=== PATIENT | female | born 1975 | race Caucasian/White ===

== ENCOUNTER 2017-07-29 13:35 | Emergency (ER) | payer MEDICARE, OTHER ==
--- NOTE | 2017-07-29 13:48 | EDM.PDOC ---
ED HPI GENERAL MEDICAL PROBLEM - General Chief Complaint: General Stated Complaint: dehydration Time Seen by Provider: 07/29/17 13:35 Source of Information: Reports: Patient, Family (Mother), Old Records ([facility] EMR. No paper hospital chart available.) History Limitations: Reports: No Limitations - History of Present Illness INITIAL COMMENTS - FREE TEXT/NARRATIVE: The patient was brought to the emergency room via private automobile for evaluation of nonspecific abdominal discomfort associated with some progressive anorexia with symptoms starting about 5 weeks ago, however progressing during the last few days. She is having trouble drinking fluids and is afraid that she is once again dehydrated. No recent history of, heartburn, nausea, diarrhea, melena, gross hematochezia, or any food intolerance, including fatty foods, etc. somewhat loose stools yesterday and today but only 1 bowel movement per day.The patient denies any chest pain/pressure, heart flutter, dizziness, orthostasis, orthopnea, diaphoresis, paresthesias, recent decreased exercise tolerance, or any other anginal-type symptoms. The patient also denies any recent fever, cough, wheezing, dyspnea, etc.. No history of recent headaches, visual changes, diplopia, change in mental status, or other change in neurological status. Note that the patient has had an unintentional about 5 pounds weight gain during the last couple of weeks Onset: Gradual Duration: Week(s):, Getting Worse Location: Reports: Abdomen. Denies: Head, Face, Neck, Chest, Back, Pelvis, Radiates to Quality: Reports: Ache, Same as Previous Episode Severity: Mild Improves with: Reports: None Worsens with: Reports: None Context: Reports: Other (As above) Associated Symptoms: Reports: Fever/Chills, Loss of Appetite. 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) (None) - Related Data Allergies Allergy/AdvReac Type Severity Reaction Status Date / Time meperidine [From Demerol] Allergy Cannot Verified 07/29/17 13:51 Remember Home Meds: Home Meds Aspirin 81 mg PO BRK 07/29/17 [History] Calcium Carbonate/Vitamin D3 [Calcium 500 + Vit D Caplet] 1 each PO BID [History] ClonazePAM [KlonoPIN] 1 mg PO TID 07/29/17 [History] Darbepoetin Drew [Aranesp] 60 mcg SUBCUT Q14D 07/29/17 [History] FLUoxetine HCl [Fluoxetine HCl] 80 mg PO 199907/29/17 [History] Ferrous Sulfate 325 mg PO TID 07/29/17 [History] Gabapentin [Neurontin] 300 mg PO BID 07/29/17 [History] Levalbuterol Tartrate [Xopenex Hfa] 15 gm IH ASDIRECTED PRN 07/29/17 [History] Magnesium 250 mg PO BID 07/29/17 [History] Mycophenolate Mofetil [Cellcept] 500 mg PO BID 07/29/17 [History] Sodium Bicarbonate 1,300 mg PO BID 07/29/17 [History] Sulfamethoxazole/Trimethoprim [Sulfamethoxazole-Tmp Ss Tablet] 1 tab PO DAILY [History] Tacrolimus [Prograf] 2 mg PO BID 07/29/17 [History] buPROPion [Wellbutrin XL] 300 mg PO 199907/29/17 [History] Past Medical History HEENT History: Reports: Cataract, Impaired Vision, Retinal Detachment, Other ( See Below). Denies: Allergic Rhinitis, Glaucoma, Hard of Hearing, Macular Degeneration Other HEENT History: bilateral cataracts and diabetic retinopathy Cardiovascular History: Denies: Afib, Aneurysm, Arrhythmia, Blood Clots/VTE/DVT , CAD, Heart Failure, Heart Murmur, High Cholesterol, Hypertension, UT, PVD, Syncope Respiratory History: Reports: Asthma, Intubation, Previous. Denies: Bronchitis , Recurrent, COPD, PE, Pneumonia, Recurrent, Pneumothorax, Sleep Apnea Gastrointestinal History: Reports: Gastritis, GERD. Denies: Celiac Disease, Cholelithiasis, Chronic Constipation, Chronic Diarrhea, Colon Polyp, Fecal Incontinence, GI Bleed, Hepatitis, Hiatal Hernia, Inflammatory Bowel Disease, Irritable Bowel Syndrome, Jaundice, Pancreatitis, PUD Genitourinary History: Reports: Acute Renal Failure, Chronic Renal Insuffiency, Diabetic Nephropathy, UTI, Recurrent, Other (See Below). 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 Denies: Dysfunctional Uterine Bleeding, Endometriosis, Fibroids : 3 (SAB during first trimester) Para: 2 (Problems with preeclampsia and gestational diabetes during both pregnancies with full-term initial delivery by with last delivered by at 24 weeks gestation) LMP (Approximate): 1 Week (Normal by history) Musculoskeletal History: Reports: Arthritis, Back Pain, Chronic, Neck Pain, Chronic, Osteoarthritis. Denies: Amputation, Fracture, Fibromyalgia, Gout, Osteoporosis, RA, SLE Neurological History: Reports: None, Neuropathy, Diabetic, Neuropathy, Peripheral. Denies: Cerebral Aneurysms, Concussion, CVA, Headaches, Chronic, Head Trauma, Migraines, MS, Parkinson's, Seizure, TIA Psychiatric History: Reports: Anxiety, Depression. Denies: Abuse, Victim of, ADD, ADHD, Addiction, Psych Hospitalization(s), PTSD, Suicide Attempt, Suicidal Ideation Endocrine/Metabolic History: Reports: Diabetes, Type I (Since age 10), IDDM, Other (See Below). Denies: Hypothyroidism Other Endocrine/Metabolic History: Hypomagnesemia Hematologic History: Reports: Anemia, Iron Deficiency. Denies: B12 Deficiency, Blood Transfusion(s) Immunologic History: Reports: Immunosuppression, Other (See Below). Denies: AIDS, HIV, SLE Other Immunologic History: Immunosuppression secondary to IDDM and previous pancreas and kidney transplant as below Oncologic (Cancer) History: Reports: None. Denies: Basal Cell Carcinoma, Cervix , Hodgkin's Lymphoma, Lymphoma, Malignant Melanoma, Non-Hodgkin's Lymphoma, Pancreatic, Squamous Cell Carcinoma Dermatologic History: Reports: None. Denies: Eczema, Psoriasis - Infectious Disease History Infectious Disease History: Reports: Chicken Pox, Scarlet Fever. Denies: C- Difficile, Measles, Meningitis, Mononucleosis, MRSA, Mumps, Pertussis (Whooping Cough), Rheumatic Fever, Rubella, Shingles, VRE - Past Surgical History Head Surgeries/Procedures: Reports: None HEENT Surgical History: Reports: Laser Surgery, Oral Surgery, Other (See Below) . Denies: Adenoidectomy, Cataract Surgery, Detached Retina, Eye Surgery, LASIK , Myringotomy w Tube(s), Naso-Sinus Surgery, Tonsillectomy Other HEENT Surgeries/Procedures: [place] teeth extraction 4 at age 12, laser treatments for diabetic retinopathy with last treatment at about age 30 Cardiovascular Surgical History: Reports: None. Denies: Varicose Respiratory Surgical History: Reports: None. Denies: Lung Biopsies, Thoracentesis GI Surgical History: Reports: Colonoscopy, EGD, Other (See Below). Denies: Appendectomy, Cholecystectomy, Hernia, Abdominal, Hernia, Inguinal, Hernia Repair/Other Other GI Surgeries/Procedures: EGD and colonoscopy in about 2011 concomitant pancreatic and renal transplant at the [facility] on 09/15/08 with her mother as donor for her kidney Female Surgical History: Reports: Breast Biopsy, Section, Tubal Ligation, Other (See Below). Denies: D&C, Dilitation & Evacuation, Oophorectomy , Salpingo-Oophorectomy Other Female Surgeries/Procedures: bilateral tubal ligation at age 29, C- sections 2 this above, renal transplant as above Endocrine Surgical History: Denies: Thyroid Biopsy Neurological Surgical History: Denies: C-Spine, Discectomy, Laminectomy, Lumbar Spine, Spinal Fusion, Vertebroplasty Musculoskeletal Surgical History: Reports: Arthroscopic Procedure, Other (See Below). Denies: Carpal Tunnel, Ganglion Cyst, Joint Replacement, ORIF, Shoulder Surgery Other Musculoskeletal Surgeries/Procedures:: Bilateral arthroscopic knee surgeries age 16 Oncologic Surgical History: Reports: None. Denies: Biopsy of Breast Dermatological Surgical History: Reports: None - Past Imaging History Past Imaging History: Reports: Carotid US (12/15/14), CAT Scan (CT of the abdomen and pelvis on 02/15/15, CT of the sinuses on 04/03/11), Mammogram (Last on 05/26/17), MRI (MRI of the pelvis on 01/29/10), Stress Testing (Negative Dobutamine Cardiolite stress test on 04/08/08 with ejection fraction of 50 percent), Ultrasound (Renal ultrasound on 12/22/14, last bladder ultrasound on 12/11 with previous evaluation on 04/24/11, ultrasound of the legs bilaterally for varicose veins on 09/15/10 and 03/30/10), Venous Doppler (Venous Doppler studies of the lower extremities on 05/16/10) Social & Family History - Tobacco Use Smoking Status *Q: Never Smoker Tobacco Use Within Last Twelve Months: No Used Tobacco, but Quit: No Smoking Cessation Information Provided To Patient: No Second Hand Smoke Exposure: Yes Source of Second Hand Smoke Exposure: smokes Second Hand Smoke Education Provided: Yes - Caffeine Use Caffeine Use: Reports: Coffee (One cup every few days), Soda (1 soda every few days). Denies: Energy Drinks, Tea - Alcohol Use Alcohol Use History: No Days Per Week of Alcohol Use: 0 (No previous DWIs, problems with alcohol abuse, etc.) Number of Drinks Per Day: 2 (Usually wine every 3 months) Total Drinks Per Week: 0 Alcohol Use Frequency: Socially - Recreational Drug Use Recreational Drug Use: No Drug Use in Last 12 Months: No Recreational Drug Type: Denies: Amphetamines (Speed), Cocaine, Heroin, Inhalants (Glues, Solvents, Aerosols), LSD (Acid), Marijuana/Hashish, Methamphetamine, Morphine - Living Situation & Occupation Living situation: Reports: (1998, 2 children), with Family (2 children, is in [facility]) 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 ED EXAM, GENERAL - Physical Exam Exam: See Below Exam Limited By: No Limitations General Appearance: Alert, WD/WN, No Apparent Distress, Anxious (Mild) Eye Exam: Bilateral Eye: EOMI, Normal Inspection (No nystagmus), PERRL Ears: Normal External Exam, Normal Canal, Hearing Grossly Normal, Normal TMs Nose: Normal Inspection, Normal Mucosa, No Blood Throat/Mouth: Normal Lips, Normal Teeth, Normal Gums, Normal Voice, No Airway Compromise, Other (Mild dry oral mucosa). No: Dysphagia, Perioral Cyanosis Head: Atraumatic, Normocephalic. No: Facial Swelling, Facial Tenderness, Other Neck: Normal Inspection, Supple, Non-Tender, Full Range of Motion. No: Lymphadenopathy (L), Lymphadenopathy (R), Thyromegaly Respiratory/Chest: No Respiratory Distress, Lungs Clear, Normal Breath Sounds, No Accessory Muscle Use, Chest Non-Tender. No: Pleural Rub, Retractions Cardiovascular: Normal Peripheral Pulses, Regular Rate, Rhythm, No Edema, No Gallop, No JVD, No Murmur, No Rub. No: Gallop/S3, Gallop/S4, Friction Rub Peripheral Pulses: 4+: Radial (L), Radial (R), Dorsalis Pedis (L), Dorsalis Pedis (R) GI/Abdominal: Normal Bowel Sounds, Soft, Non-Tender, No Organomegaly, No Distention, No Abnormal Bruit, No Mass, Pelvis Stable. No: Guarding, Rebound (Female) Exam: Deferred Rectal (Female) Exam: Deferred Back Exam: Normal Inspection, Full Range of Motion. No: CVA Tenderness (L), CVA Tenderness (R), Muscle Spasm Extremities: Normal Inspection, Normal Range of Motion, Non-Tender, No Pedal Edema, Normal Capillary Refill. No: Kathy's Sign Neurological: Alert, Oriented, CN II-XII Intact, Normal Cognition, Normal Gait, Normal Reflexes (Negative Babinski's), No Motor/Sensory Deficits Psychiatric: Anxious (Mild), Depressed Mood (Mild adequate eye contact) Skin Exam: Warm, Dry, Intact, Normal Color, No Rash. No: Wound/Incision Lymphatic: No Adenopathy Course - Vital Signs Last Recorded V/S: Last Vital Signs Temp 36.7 C 07/29/17 13:36 Pulse 96 07/29/17 16:05 Resp 18 07/29/17 16:05 BP 158/96 H 07/29/17 16:05 Pulse Ox 98 07/29/17 16:05 Vital Signs - 24 hr 07/29/17 07/29/17 13:36 16:05 Temperature [ 36.7 C Oral] Pulse, 95 96 Peripheral [ Left Pulse Oximetry] Respiratory 20 18 Rate Blood Pressure 121/107 H 158/96 H [Right Upper Arm] O2 Sat by Pulse 100 98 Oximetry - Orders/Labs/Meds Orders: Active Orders 24 hr Category Date Time Status Communication Order [RC] ROUTINE Care 07/29/17 16:11 Ordered Nothing per Oral Now Diet [DIET] Diet 07/29/17 Breakfast Active Abdomen Series w Chest 1V [CR] Stat Exams 07/29/17 13:48 Taken Lactated Ringers [Ringers, Lactated] 1,000 ml Med 07/29/17 15:06 Active IV ASDIRECTED Sodium Chloride 0.9% [Saline Flush] Med 07/29/17 13:50 Active 10 ml FLUSH ASDIRECTED PRN Peripheral IV Insertion Adult [OM.PC] Routine Oth 07/29/17 13:50 Ordered Medication Orders Lactated Ringer's (Ringers, Lactated) 1,000 mls @ 999 mls/hr IV ASDIRECTED HANNY Sodium Chloride (Saline Flush) 10 ml FLUSH ASDIRECTED PRN PRN Reason: Keep Vein Open Labs: Laboratory Tests 07/29/17 07/29/17 07/29/17 Range/Units 14:15 14:15 14:15 WBC 4.9 (4.0-10.2) K/uL RBC 3.64 L (3.77-5.09) M/uL Hgb 10.7 L (11.7-15.5) g/dL Hct 33.4 L (34.0-46.0) % MCV 91.8 (84.0-98.0) fL MCH 29.4 (28.2-33.3) pg MCHC 32.0 (31.7-36.0) g/dL RDW 12.2 (11.2-14.1) % Plt Count 277 (150-350) K/uL Neut % (Auto) 68.4 (45.0-80.0) % Lymph % (Auto) 19.9 (10.0-50.0) % [place] % (Auto) 9.3 (2.0-14.0) % Eos % (Auto) 1.8 (0.0-5.0) % Baso % (Auto) 0.6 (0.0-2.0) % Neut # (Auto) 3.37 (1.40-7.00) K/uL Lymph # (Auto) 0.98 (0.50-3.50) K/uL [place] # (Auto) 0.46 (0.00-1.00) K/uL Eos # (Auto) 0.09 (0.00-0.50) K/uL Baso # (Auto) 0.03 (0.00-0.20) K/uL PT (9.8-11.7) SEC INR APTT (23.5-30.0) SEC Sodium 136 (136-145) mmol/L Potassium 4.2 (3.5-5.1) mmol/L Chloride 104 (98-107) mmol/L Carbon Dioxide 26.3 (21.0-32.0) mmol/L BUN 27 H (7-18) mg/dL Creatinine 2.05 H (0.51-1.17) mg/dL Est Cr Clr Drug Dosing 28.12 mL/min Estimated GFR (MDRD) 26 mL/min Glucose 96 (74-106) mg/dL Lactic Acid (0.4-2.0) mmol/L Uric Acid 5.3 (2.6-7.2) mg/dL Calcium 9.3 (8.5-10.1) mg/dL Magnesium 1.3 L (1.8-2.4) mg/dL Total Bilirubin 0.5 (0.2-1.0) mg/dL AST 17 (15-37) U/L ALT 14 (12-78) U/L Alkaline Phosphatase 50 (46-116) IU/L Total Protein 7.4 (6.4-8.2) g/dL Albumin 3.8 (3.4-5.0) g/dL Amylase 173 H (25-115) U/L Lipase 492 H (73-393) U/L HCG, Qual (NEGATIVE) Ketones Negative 07/29/17 07/29/17 07/29/17 Range/Units 14:15 14:15 14:15 WBC (4.0-10.2) K/uL RBC (3.77-5.09) M/uL Hgb (11.7-15.5) g/dL Hct (34.0-46.0) % MCV (84.0-98.0) fL MCH (28.2-33.3) pg MCHC (31.7-36.0) g/dL RDW (11.2-14.1) % Plt Count (150-350) K/uL Neut % (Auto) (45.0-80.0) % Lymph % (Auto) (10.0-50.0) % [place] % (Auto) (2.0-14.0) % Eos % (Auto) (0.0-5.0) % Baso % (Auto) (0.0-2.0) % Neut # (Auto) (1.40-7.00) K/uL Lymph # (Auto) (0.50-3.50) K/uL [place] # (Auto) (0.00-1.00) K/uL Eos # (Auto) (0.00-0.50) K/uL Baso # (Auto) (0.00-0.20) K/uL PT 11.3 (9.8-11.7) SEC INR 1.1 APTT 25.5 (23.5-30.0) SEC Sodium (136-145) mmol/L Potassium (3.5-5.1) mmol/L Chloride (98-107) mmol/L Carbon Dioxide (21.0-32.0) mmol/L BUN (7-18) mg/dL Creatinine (0.51-1.17) mg/dL Est Cr Clr Drug Dosing mL/min Estimated GFR (MDRD) mL/min Glucose (74-106) mg/dL Lactic Acid 0.5 (0.4-2.0) mmol/L Uric Acid (2.6-7.2) mg/dL Calcium (8.5-10.1) mg/dL Magnesium (1.8-2.4) mg/dL Total Bilirubin (0.2-1.0) mg/dL AST (15-37) U/L ALT (12-78) U/L Alkaline Phosphatase (46-116) IU/L Total Protein (6.4-8.2) g/dL Albumin (3.4-5.0) g/dL Amylase (25-115) U/L Lipase (73-393) U/L HCG, Qual Negative (NEGATIVE) Ketones Meds: Medications Generic Name Dose Route Start Last Admin Trade Name Freq PRN Reason Stop Dose Admin Lactated Ringer's 1,000 mls @ 999 mls/hr 07/29/17 15:06 Ringers, Lactated IV ASDIRECTED HANNY Sodium Chloride 10 ml 07/29/17 13:50 Saline Flush FLUSH ASDIRECTED PRN Keep Vein Open Discontinued Medications Generic Name Dose Route Start Last Admin Trade Name Freq PRN Reason Stop Dose Admin Lactated Ringer's 1,000 mls @ 100 mls/hr 07/29/17 14:00 07/29/17 14:20 Ringers, Lactated IV 100 mls/hr ASDIRECTED HANNY Administration - Radiology Interpretation Free Text/Narrative:: Acute abdominal x-rays shows evidence of only very occasional fluid level with no significant gaseous distention, ileus, obstruction, free air, etc. Multiple surgical clips noted. Mild pulmonary obstructive disease with no evidence of pulmonary infiltrates, pneumothorax, CHF, cardiomegaly, etc. Departure - Departure Time of Disposition: 16:25 Disposition: DC/Tfer to Acute Hospital 02 Condition: Fair Clinical Impression: Dehydration, IDDM (insulin dependent diabetes mellitus), Peptic reflux disease , Mixed anxiety depressive disorder, Hypertension Pancreatitis Qualifiers: Chronicity: acute Pancreatitis type: other Acute pancreatitis complication: unspecified Qualified Code(s): K85.80 - Other acute pancreatitis without necrosis or infection Abdominal pain Qualifiers: Abdominal location: generalized Qualified Code(s): R10.84 - Generalized abdominal pain Diabetic nephropathy Qualifiers: Diabetes mellitus type: type 1 Qualified Code(s): E10.21 - Type 1 diabetes mellitus with diabetic nephropathy Diabetic neuropathy Qualifiers: Diabetes mellitus type: type 1 Diabetes mellitus complication detail: diabetic polyneuropathy Qualified Code(s): E10.42 - Type 1 diabetes mellitus with diabetic polyneuropathy Osteoarthritis Qualifiers: Osteoarthritis location: multiple joints Osteoarthritis type: primary Qualified Code(s): M15.0 - Primary generalized (osteo)arthritis Iron deficiency anemia Qualifiers: Iron deficiency anemia type: other iron deficiency Qualified Code(s): D50.8 - Other iron deficiency anemias - Discharge Information Referrals: Steven Vargas MD [Primary Care Provider] - Forms: ED Department Discharge, Interfacility Transfer EMTALA Additional Instructions: 1. Go directly to the [facility] for direct admission, Atn : Dr. Ovalle, hospitalist 2. Strict nothing to eat or drink until otherwise directed by [place] physicians - Problem List & Annotations (1) Pancreatitis SNOMED Code(s): 47411960 Code(s): K85.90 - ACUTE PANCREATITIS WITHOUT NECROSIS OR INFECTION[facility] Status: Acute Priority: High Current Visit: Yes Onset Date: 07/29/17 Annotation/Comment:: Note recent creatinine of 1.85, lipase of 79 and amylase of 152 on 07/18/17 per medical records from [facility] EMR. Her hemoglobin was previously 10.1 and creatinine of 2.11 on . Possible beginning pancreatitis versus organ rejection with patient possibly benefiting from an MRI. CT scan cannot be conducted in this facility secondary to her renal function. Telephone consultation at 15:[address] Ovalle, hospitalist at [facility], who does accept the patient for direct admission into their facility. He is aware of our plan for private automobile transfer with her mother driving her to that facility. No further treatment recommendations given. The patient and her mother were extensively cautioned to go directly to that facility and remain strictly nothing by mouth Qualifiers: Chronicity: acute Pancreatitis type: other Acute pancreatitis complication: unspecified Qualified Code(s): K85.80 - Other acute pancreatitis without necrosis or infection (2) Abdominal pain SNOMED Code(s): 00055287 Code(s): R10.9 - UNSPECIFIED ABDOMINAL PAIN Status: Acute Priority: High Current Visit: Yes Annotation/Comment:: Possibly secondary to beginning pancreatitis as above Qualifiers: Abdominal location: generalized Qualified Code(s): R10.84 - Generalized abdominal pain (3) Dehydration SNOMED Code(s): 81636291 Code(s): E86.0 - DEHYDRATION Status: Acute Priority: High Current Visit : Yes Onset Date: ~07/29/17 Annotation/Comment:: 1 L lactated Ringer's IV bolus given with patient discharged to [facility] with saline lock. Patient did urinate prior to discharge (4) Diabetic nephropathy Status: Chronic Priority: Medium Current Visit: Yes Annotation/Comment:: Note history of renal transplant as below with relatively stable creatinine level at this time as above. 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 - Type 1 diabetes mellitus with diabetic nephropathy (5) Diabetic neuropathy SNOMED Code(s): 574275891, 607706943, 893954302 Code(s): E11.40 - TYPE 2 DIABETES MELLITUS WITH DIABETIC NEUROPATHY, UNSP Status: Chronic Priority: Medium Current Visit: Yes Annotation/Comment:: Stable by history Qualifiers: Diabetes mellitus type: type 1 Diabetes mellitus complication detail: diabetic polyneuropathy Qualified Code(s): E10.42 - Type 1 diabetes mellitus with diabetic polyneuropathy (6) IDDM (insulin dependent diabetes mellitus) SNOMED Code(s): 38683352 Code(s): E11.9 - TYPE 2 DIABETES MELLITUS WITHOUT COMPLICATIONS; Z79.4 - CARE HOME (CURRENT) USE OF INSULIN Status: Chronic Priority: High Current Visit: Yes Annotation/Comment:: History of type I IDDM as above with no insulin record after pancreas transplant as above. Note complications of diabetic retinopathy, nephropathy, and neuropathy, however. (7) Iron deficiency anemia SNOMED Code(s): 66516564 Code(s): D50.9 - IRON DEFICIENCY ANEMIA, UNSPECIFIED Status: Chronic Priority: Medium Current Visit: Yes Annotation/Comment:: Relatively stable as above Qualifiers: Iron deficiency anemia type: other iron deficiency Qualified Code(s): D50.8 - Other iron deficiency anemias (8) Mixed anxiety depressive disorder SNOMED Code(s): 049737903 Code(s): F41.8 - OTHER SPECIFIED ANXIETY DISORDERS Status: Chronic Priority: Medium Current Visit: Yes Annotation/Comment:: Continue to observe closely by regular providers (9) Osteoarthritis SNOMED Code(s): 044610469 Code(s): M19.90 - UNSPECIFIED OSTEOARTHRITIS, UNSPECIFIED SITE Status: Chronic Priority: Medium Current Visit: Yes Annotation/Comment:: Stable by history Qualifiers: Osteoarthritis location: multiple joints Osteoarthritis type: primary Qualified Code(s): M15.0 - Primary generalized (osteo)arthritis (10) Peptic reflux disease SNOMED Code(s): 39662526 Code(s): K21.9 - GASTRO-ESOPHAGEAL REFLUX DISEASE WITHOUT ESOPHAGITIS Status: Chronic Priority: Medium Current Visit: Yes Annotation/Comment:: Otherwise stable by history (11) Hypertension SNOMED Code(s): 18347589 Code(s): I10 - ESSENTIAL (PRIMARY) HYPERTENSION Status: Acute Priority: High Current Visit: Yes Onset Date: 07/29/17 Annotation/Comment:: Blood pressures were somewhat elevated in the emergency room. Continue to observe closely by accepting providers Qualifiers: Hypertension type: essential hypertension Qualified Code(s): I10 - Essential (primary) hypertension - Problem List Review Problem List Initiated/Reviewed/Updated: Yes - My Orders Last 24 Hours: My Active Orders 07/29/17 13:48 Abdomen Series w Chest 1V [CR] Stat 07/29/17 13:50 Sodium Chloride 0.9% [Saline Flush] 10 ml FLUSH ASDIRECTED PRN Peripheral IV Insertion Adult [OM.PC] Routine 07/29/17 15:06 Lactated Ringers [Ringers, Lactated] 1,000 ml IV ASDIRECTED 07/29/17 16:11 Communication Order [RC] ROUTINE 07/29/17 Breakfast Nothing per Oral Now Diet [DIET] - Assessment/Plan Last 24 Hours: My Active Orders 07/29/17 13:48 Abdomen Series w Chest 1V [CR] Stat 07/29/17 13:50 Sodium Chloride 0.9% [Saline Flush] 10 ml FLUSH ASDIRECTED PRN Peripheral IV Insertion Adult [OM.PC] Routine 07/29/17 15:06 Lactated Ringers [Ringers, Lactated] 1,000 ml IV ASDIRECTED 07/29/17 16:11 Communication Order [RC] ROUTINE 07/29/17 Breakfast Nothing per Oral Now Diet [DIET] Assessment:: As above. Plan: As above. Extensive precautions were given to the patient and her mother, who are in agreement with the treatment plan. See Patient Instructions for further treatment and plan.
[2017-07-29] MEDS ORDERED: Sodium Chloride 0.9% 10 ML Syringe FLUSH PRN (13:50)
[2017-07-29] MEDS ORDERED: Lactated Ringers 1,000 ML IV SCH ×2 (14:00→15:06)
[2017-07-29 16:05] VITALS: BP 158/96
== END 2017-07-29 16:25 ==
LOC: LL.ED 13:35
DX: E86.0 Dehydration (principal); F41.8 Other specified anxiety disorders; K21.9 Gastro-esophageal reflux disease without esophagitis; J45.909 Unspecified asthma, uncomplicated; N18.9 Chronic kidney disease, unspecified; E10.21 Type 1 diabetes mellitus with diabetic nephropathy; E10.319 Type 1 diabetes mellitus with unspecified diabetic retinopathy without macular edema; E10.42 Type 1 diabetes mellitus with diabetic polyneuropathy; D50.8 Other iron deficiency anemias; K85.80 Other acute pancreatitis without necrosis or infection; E83.42 Hypomagnesemia; M15.0 Primary generalized (osteo)arthritis; F32.9 Major depressive disorder, single episode, unspecified; Z88.8 Allergy status to other drugs, medicaments and biological substances; Z79.82 Long term (current) use of aspirin; Z87.440 Personal history of urinary (tract) infections; Z79.899 Other long term (current) drug therapy; Z86.79 Personal history of other diseases of the circulatory system; Z98.51 Tubal ligation status
CPT/HCPCS: 36415; 74022; 80053; 82009; 82150; 83605; 83690; 83735; 84550; 84703; 85025; 85610; 85730; 96360; 99285; J7120; 99284

== ENCOUNTER 2023-11-23 18:51 | Emergency (ER) | payer OTHER, MEDICARE ==
[2023-11-23] MEDS ORDERED: Sodium Chloride 0.9% 10 ML Syringe FLUSH PRN (19:09)
[2023-11-23 19:26] LABS: BASOPHILS ABSOLUTE AUTO 0.01 K/uL (0.00-0.20); BASOPHILS PERCENT AUTO 0.2 % (0.0-2.0); EOSINOPHILS ABSOLUTE AUTO 0.07 K/uL (0.00-0.50); EOSINOPHILS PERCENT AUTO 1.1 % (0.0-5.0); HEMATOCRIT 33.4 % (34.0-46.0); HEMOGLOBIN 10.8 g/dL (11.7-15.5); LYMPHOCYTES ABSOLUTE AUTO 0.66 K/uL (0.50-3.50); LYMPHOCYTES PERCENT AUTO 10.7 % (10.0-50.0); MEAN CORPUSCULAR HEMOGLOBIN 30.2 pg (28.2-33.3); MEAN CORPUSCULAR HGB CONC 32.3 g/dL (31.7-36.0); MEAN CORPUSCULAR VOLUME 93.3 fL (84.0-98.0); MONOCYTES ABSOLUTE AUTO 0.42 K/uL (0.00-1.00); MONOCYTES PERCENT AUTO 6.8 % (2.0-14.0); NEUTROPHILS ABSOLUTE AUTO 5.01 K/uL (1.40-7.00); NEUTROPHILS PERCENT AUTO 81.2 % (45.0-80.0); PLATELET COUNT,PLT 290 K/uL (150-350); RED BLOOD CELL COUNT 3.58 M/uL (3.77-5.09); RED CELL DISTRIBUTION WIDTH 13.6 % (11.2-14.1); WHITE BLOOD CELL COUNT,WBC 6.2 K/uL (4.0-10.2)
[2023-11-23 19:50] LABS: LACTIC ACID 2.8 mmol/L (0.4-2.0)
[2023-11-23 19:53] LABS: ALANINE AMINOTRANSFERASE,ALT 42 U/L (12-78); ALBUMIN 2.9 g/dL (3.4-5.0); ALKALINE PHOSPHATASE 56 IU/L (46-116); ANION GAP 6.7 meq/L (7-15); ASPARTATE AMNIOTRANSFERASE,AST 27 U/L (15-37); BILIRUBIN TOTAL 0.3 mg/dL (0.2-1.0); BLOOD UREA NITROGEN,BUN 17 mg/dL (7-18); CALCIUM 9.2 mg/dL (8.5-10.1); CARBON DIOXIDE,CO2 30.3 mmol/L (21.0-32.0); CHLORIDE,CL 104 mmol/L (98-107); CREATININE 1.88 mg/dL (0.51-1.17); GLUCOSE RANDOM 130 mg/dL (70-99); POTASSIUM,K 3.8 mmol/L (3.5-5.1); PRO B-TYPE NATRIUR PEPT,BNPPRO 943 pg/mL (0-125); PROTEIN TOTAL,TP 7.1 g/dL (6.4-8.2); PROTHROMBIN TIME 10.2 SEC (9.0-11.1); SODIUM,NA 141 mmol/L (136-145)
[2023-11-23 19:54] LABS: ESTIMATED GFR 32 mL/min (>=60)
[2023-11-23 20:04] LABS: CORONAVIRUS COVID-19 NAA NEGATIVE (NEGATIVE); INFLUENZA A NAA NEGATIVE (NEGATIVE); INFLUENZA B NAA NEGATIVE (NEGATIVE); RESPIRATORY SYNCYTIAL VIR NAA NEGATIVE (NEGATIVE)
[2023-11-23] MEDS: Lactated Ringers 1,000 ML IV ONE (20:25)
[2023-11-23] MEDS: Lactated Ringers 1,000 ML IV SCH (22:12)
[2023-11-23 22:38] VITALS: BP 148/94; PULSE 89
== END 2023-11-23 22:50 ==
LOC: LL.ED 18:51
DX: N17.9 Acute kidney failure, unspecified (principal); G40.309 Generalized idiopathic epilepsy and epileptic syndromes, not intractable, without status epilepticus; E87.20 Acidosis, unspecified; Z20.822 Contact with and (suspected) exposure to COVID-19; J44.9 Chronic obstructive pulmonary disease, unspecified; Z86.73 Personal history of transient ischemic attack (TIA), and cerebral infarction without residual deficits; E11.22 Type 2 diabetes mellitus with diabetic chronic kidney disease; E11.21 Type 2 diabetes mellitus with diabetic nephropathy; Z79.899 Other long term (current) drug therapy; Z88.8 Allergy status to other drugs, medicaments and biological substances; Z98.2 Presence of cerebrospinal fluid drainage device
CPT/HCPCS: 0241U; 36415; 80053; 83605; 83880; 84484; 85025; 85610; 96360; 99285-25; J7120